=== PATIENT | female | born 2005 | race American Indian/Alaskan Native ===

== ENCOUNTER 2025-02-17 15:07 | Emergency (ER) | payer SELFPAY ==
[2025-02-17 15:34] LABS: APPEARANCE,URINE SLIGHTLY CLOUDY (CLEAR); BILIRUBIN,URINE NEGATIVE (NEGATIVE); COLOR,URINE YELLOW (YELLOW); GLUCOSE,URINE NEGATIVE (NEGATIVE); KETONES,URINE TRACE (NEGATIVE); LEUKOCYTE ESTERASE,URINE LARGE (NEGATIVE); NITRITE,URINE NEGATIVE (NEGATIVE); OCCULT BLOOD,URINE SMALL (NEGATIVE); PH,URINE 6.5 (5.0-9.0); PROTEIN,URINE NEGATIVE (NEGATIVE); UROBILINOGEN,URINE 0.2 mg/dL (0.2-1.0)
[2025-02-17 15:57] LABS: EPITHELIAL CELLS,URINE FEW /HPF (NOT SEEN); WBC,URINE 75-100 /HPF (0-5/HPF)
[2025-02-17 15:58] LABS: BACTERIA,URINE MODERATE /HPF (0-FEW/HPF)
[2025-02-17] MEDS: Take Home: Nitrofurantoin Monohydrate/Macrocrystalline 100 MG, 6 Cap Pack PO ONE (16:00)
[2025-02-20 12:46] LABS: C.TRACHOMATIS BY TMA Negative (Negative); N.GONORRHOEAE BY TMA Negative (Negative); SOURCE GENITAL
== END 2025-02-17 16:11 | disposition home or self-care (01) ==
LOC: DL.ED 15:07
DX: N39.0 Urinary tract infection, site not specified (principal); Z11.3 Encounter for screening for infections with a predominantly sexual mode of transmission
CPT/HCPCS: 81001; 81025; 86592; 87086; 87389; 87491; 87591; 99284; A9270; 36415; 99283